=== PATIENT | female | born 1980 | race Caucasian/White ===

== ENCOUNTER 2017-12-01 05:35 | Day surgery (SDC) | payer BC ==
[~2017-12-01] VITALS: Ht 165.1 cm; Wt 70.3 kg
[~2017-12-01 05:35] MED LIST: ACCOLATE20 MG PO; ADDERALL XR 2525 MG PO; KLONOPIN1 MG PO; VENTOLIN HFA18 GM IH; ZYRTEC10 M3 PO
[2017-12-01] MEDS ORDERED: MELATONIN5 MG SL (06:04)
[2017-12-01] MEDS ORDERED: BENADRYL25 MG PO (06:05)
[2017-12-01 06:10] VITALS: BP 133/75
[2017-12-01 06:13] VITALS: BP 133/75
[2017-12-01 06:19] LABS: BASOPHIL (%) 0.8 % (0-1); BASOPHIL COUNT 0.1 K/uL (0-0.1); EOSINOPHIL (%) 6.5 % (0-5); EOSINOPHIL COUNT 0.4 K/uL (0-0.3); HEMOGLOBIN 12.3 G/DL (11.9-15.5); IMMATURE GRANULOCYTE (%) 0.3 % (0.0-0.7); LYMPHOCYTE COUNT 1.9 K/uL (1.0-2.8); MCHC 34.2 G/DL (30.0-36.0); MCV 90.7 FL (83-99); MONOCYTE (%) 9.1 % (3-12); MONOCYTE COUNT 0.6 K/uL (0-0.8); NEUTROPHIL (%) 53.3 % (45-76); NEUTROPHIL COUNT 3.3 K/uL (1.8-6.4); PLATELET COUNT 204 K/uL (156-360); RBC DIS.WIDTH-CV 12.9 % (11.8-14.6); RBC DIS.WIDTH-SD 42.5 % (39-53); RED BLOOD COUNT 3.97 M/uL (3.80-5.20); WHITE BLOOD COUNT 6.2 K/uL (4.1-10.2)
[2017-12-01] MEDS ORDERED: MOTRIN800 MG PO (07:20)
[2017-12-01] MEDS ORDERED: PERCOCET 5/31 TABLET PO (07:20)
[2017-12-01 12:30] VITALS: BP 140/79
[2017-12-01 13:37] VITALS: BP 124/63
[2017-12-01 14:32] VITALS: BP 134/70
== END 2017-12-01 14:45 | disposition home or self-care (01) ==
LOC: SDC 05:35
PROVIDERS: Obstetrics & Gynecology
DX: N80.0 Endometriosis of uterus (principal); D21.9 Benign neoplasm of connective and other soft tissue, unspecified; N83.12 Corpus luteum cyst of left ovary; N83.201 Unspecified ovarian cyst, right side; N92.0 Excessive and frequent menstruation with regular cycle; J45.909 Unspecified asthma, uncomplicated; F41.9 Anxiety disorder, unspecified
CPT/HCPCS: 85025; 86850; 86900; 86901; 88307; J0131; J0330; J0690; J1100; J1885; J2001; J2250; J2405; J2795; J3010; J3475; S0020